=== PATIENT | female | born 1980 | race Caucasian/White ===

== ENCOUNTER 2018-01-31 16:07 | Emergency (ER) | payer OTHER ==
[2018-01-31] MEDS: KETOROLAC 30 MG INJ IM (16:43)
== END 2018-01-31 17:26 | disposition home or self-care (01) ==
LOC: FTE 16:07
DX: M54.9 Dorsalgia, unspecified (principal); M54.32 Sciatica, left side
CPT/HCPCS: 81025; 96372; 99284-25

== ENCOUNTER 2018-09-28 11:44 | Emergency (ER) | payer OTHER ==
[2018-09-28 12:53] LABS: URINE BLOOD (Dip) POC 3+ (NEGATIVE); URINE GLUCOSE (Dip) POC Negative (NEGATIVE); URINE KETONES (Dip) POC Negative (NEGATIVE); URINE LEUKOCYTE EST (Dip) POC 2+ (NEGATIVE); URINE NITRITE (Dip) POC Negative (NEGATIVE); URINE TOTAL PROTEIN POC Negative (NEGATIVE)
[2018-09-28 12:53] LABS: URINE PH (Dip) POC 5.5 (5.0-8.5)
== END 2018-09-28 13:49 | disposition home or self-care (01) ==
LOC: FTE 13:49
DX: N39.0 Urinary tract infection, site not specified (principal); N89.8 Other specified noninflammatory disorders of vagina
CPT/HCPCS: 81003; 81025; 87210; 87591; 99284